=== PATIENT | female | born 1965 | race Hispanic/Latino ===

== ENCOUNTER 2024-12-13 07:00 | Outpatient (RCR) | payer OTHER | END 2024-12-17 | LOC: PT 07:00 | PROVIDERS: ATTEND Specialist | DX: M16.11 Unilateral primary osteoarthritis, right hip (principal) ==

== ENCOUNTER 2025-01-10 07:00 | Outpatient (RCR) | payer OTHER | END 2025-01-14 | LOC: PT 07:00 | PROVIDERS: ATTEND Specialist | DX: M16.11 Unilateral primary osteoarthritis, right hip (principal) ==